=== PATIENT | female | born 1940 | race Caucasian/White ===

== ENCOUNTER 2021-06-18 06:38 | Inpatient (IN) | payer MEDICARE ==
[~2021-06-18] VITALS: Ht 167.6 cm; Wt 76.7 kg
[2021-06-18 10:24] LABS: HEMOGLOBIN 9.9 gm/dl (12.3-15.3); RED BLOOD COUNT 3.15 M/UL (4.00-5.10); WHITE BLOOD COUNT 6.6 K/UL (4.5-11.0)
[2021-06-18] MEDS ORDERED: ISOSORBIDE MONO30 MG PO (10:37)
[2021-06-18] MEDS ORDERED: METOPROLOL SUC100 MG PO (10:38)
[2021-06-18] MEDS ORDERED: LUMIGAN 0.01%2.5 ML EYEBOTH (10:39)
[2021-06-18] MEDS ORDERED: VITAMIN D31250 MCG PO (10:41)
[2021-06-18] MEDS ORDERED: FERROUS SULFAT325 MG PO (10:43)
[2021-06-18] MEDS ORDERED: FUROSEMIDE20 MG PO (10:44)
[2021-06-18] MEDS ORDERED: LISINOPRIL2.5 MG PO (10:44)
[2021-06-18] MEDS ORDERED: CRESTOR20 MG PO (10:45)
[2021-06-18] MEDS ORDERED: METFORMIN HCL500 MG PO (10:45)
[2021-06-18] MEDS ORDERED: XARELTO15 MG PO (10:45)
[2021-06-18] MEDS ORDERED: LATANOPROST2.5 ML OU (10:46)
[2021-06-19 06:24] LABS: HEMOGLOBIN 8.7 gm/dl (12.3-15.3)
[2021-06-19 06:26] LABS: RED BLOOD COUNT 2.71 M/UL (4.00-5.10)
[2021-06-20 04:07] LABS: HEMOGLOBIN 8.8 gm/dl (12.3-15.3); RED BLOOD COUNT 2.69 M/UL (4.00-5.10); WHITE BLOOD COUNT 5.3 K/UL (4.5-11.0)
[2021-06-20 15:14] LABS: A/G RATIO 1.4 (0.7-1.7); ALBUMIN 2.9 g/dL (2.9-4.4); ALPHA-1-GLOBULIN 0.2 g/dL (0.0-0.4); ALPHA-2-GLOBULIN 0.7 g/dL (0.4-1.0); BETA GLOBULIN 0.5 g/dL (0.7-1.3); GAMMA GLOBULIN 0.6 g/dL (0.4-1.8); GLOBULIN, TOTAL 2.1 g/dL (2.2-3.9); IMMUNOGLOBULIN A, QN, SERUM 108 mg/dL (64-422); IMMUNOGLOBULIN G, QN, SERUM 611 mg/dL (586-1602); IMMUNOGLOBULIN M, QN, SERUM 176 mg/dL (26-217); M-SPIKE Not Observed g/dL (Not Observed)
--- NOTE | 2021-06-21 00:10 | NUR ---
PATIENTS BP IS 89/66. SHE IS ALERT AND ORIENTED AND ASYMPTOMATIC. NOTIFIED DR ALBERT OF PTS BP.
[2021-06-21 03:31] LABS: HEMOGLOBIN 10.6 gm/dl (12.3-15.3)
[2021-06-21 03:34] LABS: RED BLOOD COUNT 3.26 M/UL (4.00-5.10); WHITE BLOOD COUNT 9.4 K/UL (4.5-11.0)
[2021-06-23 03:39] LABS: HEMOGLOBIN 9.1 gm/dl (12.3-15.3)
[2021-06-23 03:40] LABS: RED BLOOD COUNT 2.84 M/UL (4.00-5.10); WHITE BLOOD COUNT 6.6 K/UL (4.5-11.0)
[2021-06-24 04:10] LABS: HEMOGLOBIN 8.9 gm/dl (12.3-15.3); RED BLOOD COUNT 2.76 M/UL (4.00-5.10); WHITE BLOOD COUNT 6.4 K/UL (4.5-11.0)
--- NOTE | 2021-06-25 02:06 | NUR ---
CENTRAL LINE DRESSING CHANGED WITH STERILE TECHNIQUE. PT TOLERATED WELL. SITE LOOKS CLEAN.
--- NOTE | 2021-06-25 11:01 | NUR ---
CALLED DR MILTON WITH RESULTS OF CT SCAN, NEW ORDERS GIVEN. CALLED DR LEYVA TO REVIEW RESULTS OF CT SCAN. SHE INFORMED ME SHE WOULD CALL ME BACK WITH ANY NEW ORDERS.
[2021-06-26 03:07] LABS: HEMOGLOBIN 9.2 gm/dl (12.3-15.3); RED BLOOD COUNT 2.82 M/UL (4.00-5.10)
[2021-06-26 03:12] LABS: WHITE BLOOD COUNT 8.4 K/UL (4.5-11.0)
[2021-06-27 03:33] LABS: HEMOGLOBIN 9.1 gm/dl (12.3-15.3); RED BLOOD COUNT 2.72 M/UL (4.00-5.10); WHITE BLOOD COUNT 9.5 K/UL (4.5-11.0)
[2021-06-27] MEDS ORDERED: AMIODARONE HCL200 MG PO (10:41)
[2021-06-27] MEDS ORDERED: OMNICEF 300 MG300 MG PO (10:43)
== END 2021-06-27 13:33 | DRG 682 ==
LOC: CCU 07:05 → PROG CARE 07:05 → CCU 07:19 → PROG CARE 06-20 15:07
PROVIDERS: Internal Medicine; Internal Medicine Nephrology; Physician Assistant Medical; ADMIT Internal Medicine
PROC: 3E033XZ Introduction of Vasopressor into Peripheral Vein, Percutaneous Approach (ICD-10-PCS; principal; 2021-06-18)
DX: N17.0 Acute kidney failure with tubular necrosis (principal); R57.1 Hypovolemic shock; J18.9 Pneumonia, unspecified organism; N39.0 Urinary tract infection, site not specified; I13.0 Hypertensive heart and chronic kidney disease with heart failure and stage 1 through stage 4 chronic kidney disease, or unspecified chronic kidney disease; I48.19 Other persistent atrial fibrillation; E87.2 Acidosis; Z51.5 Encounter for palliative care; Z20.822 Contact with and (suspected) exposure to COVID-19; Z66 Do not resuscitate; N18.30 Chronic kidney disease, stage 3 unspecified; I50.9 Heart failure, unspecified; K80.80 Other cholelithiasis without obstruction; E55.9 Vitamin D deficiency, unspecified; E78.5 Hyperlipidemia, unspecified; D69.6 Thrombocytopenia, unspecified; I12.9 Hypertensive chronic kidney disease with stage 1 through stage 4 chronic kidney disease, or unspecified chronic kidney disease; I45.10 Unspecified right bundle-branch block; E11.22 Type 2 diabetes mellitus with diabetic chronic kidney disease; I95.9 Hypotension, unspecified; Z79.01 Long term (current) use of anticoagulants; Z87.442 Personal history of urinary calculi; Z90.49 Acquired absence of other specified parts of digestive tract; Z90.710 Acquired absence of both cervix and uterus; Z82.49 Family history of ischemic heart disease and other diseases of the circulatory system; Z80.9 Family history of malignant neoplasm, unspecified
CPT/HCPCS: 36415; 71045; 74150; 76705; 80048; 80053; 80076; 81001; 82550; 82553; 82570; 82607; 82746; 82784; 82803; 82962; 83540; 83550; 83605; 83735; 84100; 84132; 84155; 84156; 84165; 84484; 85025; 85027; 85384; 85730; 86156; 86334; 87086; 93005; 97162; C9113; J0696; J1650; J1756; J1940; J2405; J3475; J7030; J7040; J7070; P9047